=== PATIENT | male | born 1995 | race Caucasian/White ===

== ENCOUNTER 2023-06-21 11:54 | Emergency (ER) | payer OTHER, SELFPAY ==
[2023-06-21 12:21] VITALS: BP 149/91; PULSE 86; RESP 18; TEMP 36.3; O2SAT 98
--- NOTE | 2023-06-21 15:21 | PC.NURSE ---
patient states that his asif parameter around possible spider bite last night and redness has increased
--- NOTE | 2023-06-21 16:33 | ED.WOUNDLAC ---
HPI - Wound/Laceration General Chief Complaint: Wound/Laceration Stated Complaint: spider bite Time Seen by Provider: 06/21/23 15:22 Source: patient Mode of arrival: ambulatory Limitations: no limitations History of Present Illness HPI narrative: Patient is a 27-year-old male who presents to the ED with report of a possible spider bite to his right upper arm. Patient reports he 1st noticed a lesion to his right upper arm last Friday. He had just recently stated his father's house and thought he may have been bitten by a spider. He did not physically see a spider. On Friday, he noticed some redness to his right upper arm with mild warmth, itching. The symptoms continued to worsen. He was seen in urgent care on and prescribed doxycycline. He has been taking these as prescribed and notes he outlined the area of redness with a sharpie. He states today, he noticed the redness exam past the sharpie line. He went back to the urgent care was referred to the ED for further evaluation. Denies drainage from the wound. Denies significant pain. Denies fevers. Related Data Allergies Allergy/AdvReac Type Severity Reaction Status Date / Time No Known Allergies Allergy Verified 06/21/23 15:21 Review of Systems Review of Systems: CONSTITUTIONAL: Denies fever, chills, or sweats. GASTROINTESTINAL: Denies abdominal pain, nausea, vomiting SKIN: see HPI MUSCULOSKELETAL: Denies extremity pain. All systems reviewed & are unremarkable except as noted in HPI and below Exam Narrative: GENERAL: Well appearing, well-nourished, non-toxic, in no acute distress. HEAD: Normocephalic, atraumatic. RESPIRATORY: Airway patent, respirations nonlabored. CARDIOVASCULAR: Regular rate and rhythm MUSCULOSKELETAL: Moves all extremities. No gross deformities. Dried pustule noted to right lateral posterior arm with surrounding erythema. Erythema extending just past skin marker line. Minimal warmth. No induration or palpable fluctuance. No drainage. No significant tenderness. No necrosis. No skin breakdown or sloughing of skin. SKIN: Warm, dry, normal color. NEURO: A&O X3. Speech clear. No ataxic movements. PSYCHIATRIC: Appropriate mood and affect. Normal interaction. Course Vital Signs Vital signs: Vital Signs Temperature 97.4 F L 06/21/23 12:21 Pulse Rate 86 06/21/23 12:21 Respiratory Rate 18 06/21/23 12:21 Blood Pressure 149/91 H 06/21/23 12:21 Pulse Oximetry 98 06/21/23 12:21 Oxygen Delivery Room Air 06/21/23 12:21 Temperature 97.9 F 06/21/23 16:56 Pulse Rate 80 06/21/23 16:56 Respiratory Rate 16 06/21/23 16:56 Blood Pressure 126/80 06/21/23 16:56 Pulse Oximetry 98 06/21/23 16:56 Oxygen Delivery Room Air 06/21/23 12:21 MDM - Wound/Laceration MDM Narrative Medical decision making narrative: Patient presented to ED with 1 week Hx of possible spider bite to right upper arm, has been on doxycycline for last couple of days, reporting continued spread of erythema. Exam without concerning features. No induration, fluctuance, necrosis, skin breakdown. Patient denies significant pain. Denies fevers. No systemic signs of infection. Will change antibiotics to clindamycin for broader coverage. Advised patient have close follow-up with primary care doctor for further evaluation, continue to monitor wound, strict return precautions. He agrees with plan. Discharged in stable condition. Medical Records Attestation: I reviewed the patient's medical records. Discharge Plan Discharge Clinical Impression: Cellulitis of right upper arm Patient Disposition: Home, Self-Care Condition: Stable Instructions: Antibiotic Form, Cellulitis (ED), Insect Bite or Sting (ED) Additional Instructions: Take antibiotics (Clindamycin) as prescribed. Continue to monitor redness. Recommend warm compresses to area of redness. Tylenol and ibuprofen if needed for discomfort. Follow-up with primary c
[2023-06-21 16:56] VITALS: BP 126/80; PULSE 80; RESP 16; TEMP 36.6; O2SAT 98
== END 2023-06-21 16:58 | disposition home or self-care (01) ==
PROVIDERS: Emergency Provider Physician Assistant
DX: L03.113 Cellulitis of right upper limb (principal)
CPT/HCPCS: 99283